=== PATIENT | male | born 1955 | race Caucasian/White ===

== ENCOUNTER 2017-08-01 18:53 | Emergency (ER) | payer OTHER ==
[2017-08-01] MEDS ORDERED: Lidocaine 2% 10 ML INJ ONE (19:06)
[2017-08-01] MEDS ORDERED: Bacitracin Zinc 1 Packet ONE (19:23)
== END 2017-08-01 19:35 | disposition home or self-care (01) ==
LOC: SCSER 18:53
DX: S51.812A Laceration without foreign body of left forearm, initial encounter (principal); I10 Essential (primary) hypertension; F17.220 Nicotine dependence, chewing tobacco, uncomplicated; Z79.82 Long term (current) use of aspirin; W25.XXXA Contact with sharp glass, initial encounter; Y92.009 Unspecified place in unspecified non-institutional (private) residence as the place of occurrence of the external cause
CPT/HCPCS: 12002